=== PATIENT | female | born 1970 | race African-American/Black ===

== ENCOUNTER 2020-08-03 15:56 | Emergency (ER) | payer BC ==
[~2020-08-03] VITALS: Ht 170.2 cm; Wt 119.7 kg
[2020-08-03 16:09] VITALS: Ht 170.2 cm; Wt 119.7 kg
[2020-08-03 17:02] VITALS: BP 143/91
== END 2020-08-03 17:02 | disposition home or self-care (01) ==
LOC: ED 15:56
DX: S40.862A Insect bite (nonvenomous) of left upper arm, initial encounter (principal); L03.114 Cellulitis of left upper limb; Z91.040 Latex allergy status; W57.XXXA Bitten or stung by nonvenomous insect and other nonvenomous arthropods, initial encounter; Y93.89 Activity, other specified; Y92.89 Other specified places as the place of occurrence of the external cause; Y99.8 Other external cause status
CPT/HCPCS: Q0163